=== PATIENT | male | born 1955 | race Caucasian/White ===

== ENCOUNTER 2018-09-10 12:25 | Emergency (ER) | payer OTHER ==
[~2018-09-10] VITALS: Ht 157.5 cm; Wt 74.3 kg
[2018-09-10 12:42] VITALS: Ht 157.5 cm; Wt 74.3 kg
--- NOTE | 2018-09-10 15:53 | ERD ---
ER Documentation Chief Complaint Chief Complaint Complains of severe back pain HPI 63-year-old male, presents to the emergency department, complaining of worsening of right lower back pain during the last week. The patient denies any recent trauma, no fever, no chills, no urinary symptoms. He also denies weakness, numbness or tingling. ROS All systems reviewed and are negative except as per history of present illness. Allergies Allergies: Coded Allergies: No Known Drug Allergies (Verified Allergy, Unknown, 09/10/18) PMhx/Soc Medical and Surgical Hx: pt denies Medical Hx, pt denies Surgical Hx FmHx Family History: diabetes Physical Exam Vitals Vital Signs Date Temp Pulse Resp B/P (MAP) Pulse Ox O2 O2 Flow FiO2 Time Delivery Rate 09/10/18 98.8 91 20 137/69 95 12:42 (91) Physical Exam Const: No acute distress Head: Atraumatic Eyes: Normal Conjunctiva ENT: Normal External Ears, Nose and Mouth. Neck: Full range of motion. No meningismus. Resp: Clear to auscultation bilaterally Cardio: Regular rate and rhythm, no murmurs Abd: Soft, non tender, non distended. Normal bowel sounds Skin: No petechiae or rashes Back: No midline or flank tenderness Ext: No cyanosis, or edema Neur: Awake and alert Psych: Normal Mood and Affect Results 24 hrs Laboratory Tests Test 09/10/18 16:20 Bedside Urine pH (LAB) 6.0 Bedside Urine Protein (LAB) Trace Bedside Urine Glucose (UA) Negative Bedside Urine Ketones (LAB) Negative Bedside Urine Blood 2+ Bedside Urine Nitrite (LAB) Negative Bedside Urine Leukocyte Esterase (L Negative Current Medications Medications Dose Sig/Yasemin Start Time Status Last (Trade) Ordered Route PRN Stop Time Admin Dose Reason Admin Morphine 10 mg ONCE ONCE 09/10/18 DC 09/10/18 Sulfate PO 16:00 16:10 (morphine) 09/10/18 16:06 Ketorolac 15 mg ONCE STAT 09/10/18 DC 09/10/18 Tromethamine IM 15:58 16:10 (Toradol) 09/10/18 16:06 [image] Patient Name Patricio Matute Study Date 09/10/2018 4:21 PM Patient 1955 Accession No. [id number] Referring Physician Susu Hargrove Patient Location [facility] PROCEDURE: CT Lumbar Spine Without Intravenous Contrast CLINICAL INDICATION: Acute exacerbation of back pain. TECHNIQUE: Axial computed tomography images of the lumbar spine without intravenous contrast. Sagittal and coronal reformatted images were created and reviewed. CTDIvol (mGy) = 13.66; total DLP (mGy-cm) = 343.43. This CT exam was performed using one or more of the following dose reduction techniques: automated exposure control, adjustment of the mA and/or kV according to patient size, and/or use of iterative reconstruction technique. DICOM images are available. COMPARISON: None FINDINGS: VERTEBRAE: There is a lytic/lucent lesion in the right posterior aspect of the L4 vertebral body. This lesion measures 1.9 cm transverse by 1.9 cm AP by 1.8 cm craniocaudal. There is extension of this lesion into the right anterior epidural space, where it effaces the ventral aspect of the thecal sac. There may also be impingement of the traversing right L4 nerve. The morphology of the lesion is concerning for a metastatic focus. No other osseous lesions are demonstrated in the lumbar spine. Vertebral alignment is physiologic. No vertebral compression fractures are noted. Mild hypertrophic changes of the facet joints noted at L4-5 end L5-S1. DISCS/SPINAL CANAL/NEURAL FORAMINA: There is degenerative disc narrowing of the L5-S1 disc, associated with a 4 mm posterior disc/osteophyte complex. No definite nerve impingement associated. Mild disc bulges are noted at L3-4 and L4-5. No significant spinal canal stenosis associated. SOFT TISSUES: Unremarkable. IMPRESSION: 1. There is a 1.9 cm diameter lytic/lucent lesion in the right posterior aspect of the L4 vertebral body. There is extension of this lesion into the right anterior epidural space, where it effaces the ventral aspect of the thecal sac. There may also be impingement of the traversing right L4 nerve. The morphology of the lesion is concerning for a metastatic focus. Consider MRI lumbar spine with contrast to further assess. 2. No other osseous lesions are demonstrated in the lumbar spine. 3. Advanced spondylitic changes are noted at L5-S1. No significant spinal canal stenosis or nerve impingement associated. Departure Diagnosis: Primary Impression: Acute exacerbation of chronic low back pain Additional Impression: Lytic bone lesions on xray Condition: Stable Additional Instructions: Thank you very much for allowing us to participate in your care. Your health and safety is our top priority at [facility]. Call your primary care doctor TOMORROW for an appointment during the next 2-4 days and bring all the information and medications prescribed. Have prescriptions filled and follow precisely the directions on the label. If the symptoms get worse and your provider is unavailable, return to the Emergency Department immediately. SUSU HARGROVE MD Sep 10, 2018 15:53
[2018-09-10] MEDS ORDERED: KETOROLAC 15 MG INJ IM STA (15:58)
[2018-09-10] MEDS ORDERED: morphine LIQ (10 MG/5 ML) CUP PO ONE (16:00)
[2018-09-10] MEDS ORDERED: HYDR-4011 PO (18:16)
[2018-09-10 18:27] VITALS: BP 136/82; PULSE 77; RESP 18
== END 2018-09-10 18:29 | disposition home or self-care (01) ==
LOC: FTE 12:25
DX: M54.5 Low back pain (principal); M89.8X9 Other specified disorders of bone, unspecified site
CPT/HCPCS: 72131; 81003; 96372; J1885; Z7502; Z7610

== ENCOUNTER 2018-09-14 11:18 | Emergency (ER) | payer OTHER ==
[~2018-09-14] VITALS: Ht 165.1 cm; Wt 77.3 kg
[~2018-09-14 11:18] MED LIST: HYDR-4011 PO
[2018-09-14 11:23] VITALS: Ht 165.1 cm; Wt 77.3 kg
[2018-09-14] MEDS ORDERED: ONDANSETRON 4 MG INJ IV STA (11:35)
[2018-09-14] MEDS ORDERED: HYDROmorphONE 1 MG/ML SYG IV STA (11:35)
--- NOTE | 2018-09-14 13:54 | ERD ---
ER Documentation Chief Complaint Chief Complaint BACK PAIN WEEKS RADIATES TO LEGS HPI Patient is a 63-year-old male with no medical problems or history of cancer who presents for intractable pain. The patient was sent by Dr. Zavaleta from the office for intractable back pain. The patient had a recent CT scan done on September 10 which showed a lytic lesion of L4. The patient has had "weeks of back pain" per the family. It seems to be about 3 weeks but has been worse over the past 1 week. The patient denies fevers or incontinence. He does have pain with walking. Upon review of old medical records the patient one previous visit to the ER on September 10. The patient's primary doctor is Dr. Zavaleta who sent the patient for admission. ROS All systems reviewed and are negative except as per history of present illness. Medications Home Meds Active Scripts Hydrocodone/Acetaminophen ([place] 5-325 Tablet) 1 Each Tablet, 1 TAB PO Q6H PRN for PAIN, #12 TAB Prov:SUSU HARGROVE MD 09/10/18 Allergies Allergies: Coded Allergies: No Known Drug Allergies (Verified Allergy, Unknown, 09/10/18) PMhx/Soc Medical and Surgical Hx: pt denies Medical Hx, pt denies Surgical Hx History of Surgery: No Anesthesia Reaction: No Hx Neurological Disorder: No Hx Respiratory Disorders: No Hx Cardiac Disorders: No Hx Psychiatric Problems: No Hx Miscellaneous Medical Probl: No Hx Alcohol Use: Yes Hx Substance Use: No Hx Tobacco Use: Yes (1 PACK A DAY) Smoking Status: Current every day smoker FmHx Family History: No diabetes Physical Exam Vitals Vital Signs Date Temp Pulse Resp B/P (MAP) Pulse Ox O2 O2 Flow FiO2 Time Delivery Rate 09/14/18 69 16 143/84 Room Air 11:30 (103) 09/14/18 98.5 77 20 147/77 99 11:23 (100) Physical Exam Const: Moderate distress Head: Atraumatic Eyes: Normal Conjunctiva ENT: Normal External Ears, Nose and Mouth. Neck: Full range of motion. No meningismus. Resp: Clear to auscultation bilaterally Cardio: Regular rate and rhythm, no murmurs Abd: Soft, non tender, non distended. Normal bowel sounds Skin: No petechiae or rashes Back: Back pain without deformity Ext: No cyanosis, or edema Neur: Awake and alert Psych: Normal Mood and Affect Result Diagram: 09/14/18 1150 09/14/18 1150 Results 24 hrs Laboratory Tests Test 09/14/18 11:50 White Blood Count 8.3 10^3/ul Red Blood Count 4.97 10^6/ul Hemoglobin 13.0 g/dl Hematocrit 40.8 % Mean Corpuscular Volume 82.1 fl Mean Corpuscular Hemoglobin 26.2 pg Mean Corpuscular Hemoglobin Concent 31.9 g/dl Red Cell Distribution Width 12.6 % Platelet Count 320 10^3/UL Mean Platelet Volume 10.0 fl Immature Granulocytes % 0.800 % Neutrophils % 70.6 % Lymphocytes % 21.0 % Monocytes % 6.7 % Eosinophils % 0.4 % Basophils % 0.5 % Nucleated Red Blood Cells % 0.0 /100WBC Immature Granulocytes # 0.070 10^3/ul Neutrophils # 5.8 10^3/ul Lymphocytes # 1.7 10^3/ul Monocytes # 0.6 10^3/ul Eosinophils # 0.0 10^3/ul Basophils # 0.0 10^3/ul Nucleated Red Blood Cells # 0.0 10^3/ul Prothrombin Time 13.8 Sec Prothrombin Time Ratio 1.1 INR International Normalized Ratio 1.05 Activated Partial Thromboplast Time 33.2 Sec Sodium Level 140 mmol/L Potassium Level 3.6 mmol/L Chloride Level 101 mmol/L Carbon Dioxide Level 32 mmol/L Anion Gap 7 Blood Urea Nitrogen 16 mg/dl Creatinine 0.82 mg/dl Est Glomerular Filtrat Rate mL/min > 60 mL/min Glucose Level 104 mg/dl Calcium Level 10.0 mg/dl Troponin I < 0.012 ng/ml Current Medications Medications Dose Sig/Yasemin Start Time Status Last (Trade) Ordered Route PRN Stop Time Admin Dose Reason Admin 1 mg ONCE STAT 09/14/18 DC 09/14/18 Hydromorphone IV 11:35 11:45 HCl 09/14/18 11:36 (Dilaudid) Ondansetron 4 mg ONCE STAT 09/14/18 DC 09/14/18 HCl (Zofran IV 11:35 11:45 Inj) 09/14/18 11:36 Procedures/MDM Patient is a 63-year-old male who presents for intractable back pain and lytic lesion of L4. The patient will need admission for further workup for potential cancer. The patient has [employer] insurance and will be transferred to [facility]. The patient was accepted by Dr. Pichardo for admission. I doubt epidural abscess, epidural hematoma, or cauda equina syndrome at this time. Departure Diagnosis: Primary Impression: Lytic lesion of bone on x-ray Additional Impression: Back pain Back pain location: low back pain Chronicity: acute Back pain laterality: midline Sciatica presence: without sciatica Qualified Codes: M54.5 - Low back pain Condition: Fair NUSRAT CALLAHAN MD Sep 14, 2018 13:54
[2018-09-14 14:05] VITALS: BP 142/88; PULSE 66; RESP 16
== END 2018-09-14 14:18 | disposition short-term general hospital (02) ==
LOC: E/R 11:18
DX: M54.5 Low back pain (principal); F17.210 Nicotine dependence, cigarettes, uncomplicated; M89.9 Disorder of bone, unspecified; R07.9 Chest pain, unspecified
CPT/HCPCS: 36415; 71045; 80048; 84484; 85025; 85610; 85730; 96374; 96375; J1170; J2405; Z7502; 93005